=== PATIENT | female | born 2005 | race African-American/Black ===

== ENCOUNTER 2025-06-30 20:00 | Emergency (ER) | payer OTHER, SELFPAY ==
--- NOTE | ~2025-06-30 | CT_ITS ---
CLINICAL HISTORY: N V D; LLQ Tenderness CT abdomen and pelvis with contrast Comparison: None provided Findings: The lung bases are clear. There are a few small cysts in the liver. The gallbladder, pancreas, spleen, adrenal glands, and kidneys are unremarkable. There are mildly dilated fluid-filled small bowel loops in the upper and midabdomen with no evidence of obstruction. The appendix is normal. The remainder of the gastrointestinal tract is unremarkable. There is trace free fluid in the cul-de-sac. The uterus and adnexa are unremarkable. The bladder is unremarkable. There are no enlarged lymph nodes. The aorta and IVC are normal. There is no fracture or suspicious lytic or sclerotic lesion. IMPRESSION: Mildly dilated fluid-filled small bowel loops without obstruction. Consider gastroenteritis or mild ileus. This document has been electronically signed by: Lux Sparks MD on 07/01/2025 02:29:26
[2025-06-30 20:13] VITALS: BP 118/57; PULSE 77; RESP 16; TEMP 36; O2SAT 100; BMI 26.6
--- NOTE | 2025-06-30 20:14 | ED_ITS ---
HPI - General Adult General Chief complaint: Nausea/Vomiting/Diarrhea Stated complaint: vomiting, dizzy Time Seen by Provider: 07/01/25 01:32 Source: patient Mode of arrival: ambulatory Limitations: no limitations History of Present Illness ED Provider: Power ANSARI HPI narrative: The patient is a 20-year-old female who presents to the Emergency Department with nearly two weeks of intermittent nausea, with nonbloody vomiting and diarrhea, and new-onset abdominal pain. Patient reports episodes occur every couple of days; last episode around 18:00 today. Previous episode was 2 days ago, and another episode a few days prior to that. Patient reports nausea upon arrival to the ED which improved after Zofran administration. The patient reports associated nonbloody diarrhea which also occurred around 18:00 today. The patient reports her abdominal pain is sharp, localizes to both the left lower quadrant and epigastrium. Patient reports the sharp pain in her epigastrium often precedes severe nausea and triggers vomiting. The patient denies similar previous symptoms, no surgical abdominal history. The patient reports she experienced subjective fever/chills 2 weeks ago when symptoms 1st began, however denies objective fever, denies any chills/fever at present. Subjective fever with chills and warmth at illness onset; no documented temperature. Currently denies chills/fever but still has mild nausea. The patient denies dysuria, hematuria; irregular vaginal bleeding, vaginal discharge, cough, chest pain, shortness of breath, or recent sick contacts. The patient reports her last menstrual period was on June 12 as expected, with normal flow and duration. Related Data Previous Rx's ?Medication ?Instructions ?Recorded famotidine 20 mg tablet (Pepcid) 20 mg PO BID #28 tabs 07/01/25 omeprazole 20 mg capsule,delayed 20 mg PO DAILY #14 ca ps 07/01/25 release Allergies Allergy/AdvReac Type Severity Reaction Status Date / Time No Known Allergies Allergy Verified 06/30/25 20:17 Review of Systems 2 Review of Systems: Yes all other systems are reviewed and are negative PMFSH Social History Social History Smoked in Last 30 Days: No Use of substances other than those prescribed or required for medical reasons: No Advance Directives: No Advance Directives Information Provided: No Do you have a plan to hurt others: No Plan Physical Exam ED Vital Signs: Vital Signs - 24 hr 06/30/25 20:13 06/30/25 22:48 07/01/25 03:38 Temperature 96.8 F 98.5 F 98.0 F Pulse Rate 77 99 93 Respiratory Rate 16 16 12 Blood Pressure 118/57 L 114/65 98/48 L Pulse Oximetry 100 98 99 Oxygen Delivery Method Room Air Room Air Room Air BMI result Body Mass Index 26.6 CONSTITUTIONAL: The patient appears non-toxic, well nourished and in no acute distress. Vital signs as documented. HEAD: Atraumatic, normocephalic. EYES: EOMs grossly intact, pupils equal, conjunctiva clear, no exudate. ENT: Nares patent, no discharge. Airway patent, no audible stridor, visible mucosa is pink and moist without noted lesions. NECK: Trachea is midline, no obvious masses or gross abnormalities. CHEST: Symmetric movement, normal appearance. LUNGS: LS present and CTAB, no w/r/r. Non-labored work of breathing. CARDIAC: Regular Rhythm, S1/S2 appreciated, no murmurs, rubs or gallops. ABDOMEN: Abdomen soft x4 quadrants, positive tenderness to palpation of the epigastrium and left lower quadrant, negative rebound, negative guarding, no palpable masses or organomegaly. : Deferred. EXTREMITIES: Normal tone, moves all extremities spontaneously without reported pain. No obvious acute injury or deformity noted. NEURO: Alert and oriented x3, CN II-XII appear grossly intact. Cerebellar Functioning grossly intact. No obvious sensory or motor deficits. Speech clear and appropriate. PSYCH: normal affect, appropriate eye contact, fluid speech, with appropriate response to questioning. No reported suicidality or homicidality. SKIN: Warm, dry, color appropriate, normal turgor. No rashes noted. Course Course Course Narrative: This is a Rapid Medical Examination (RME) performed by Kat Jackson PA-C in triage. Full HPI, ROS, assessment and treatment plan per primary provider in the Main ED. Hx: 20 yo F hx PCOS and asthma here for eval of nausea, vomiting, and LUQ abd pain cramping in nature x1 week, worsening today. LMP 11/18. no abd surgeries. no marijuana use. consumes etoh approx 1/month PE/vitals: uncomfortable appearing Plan: labs, UA - zofran given in triage. Medications Administered Discontinued Medications Generic Name Dose Route Start Last Admin Trade Name Grecia PRN Reason Stop Dose Admin Al Hydroxide/Mg Hydroxide 30 ml 07/01/25 02:57 07/01/25 03:29 Magnesium Hydrox/Alum Hydrox 30 Ml Oral.Susp PO 07/01/25 02:58 30 ml ONCE ONE Administration Famotidine 20 mg 07/01/25 02:57 07/01/25 03:28 Famotidine 20 Mg Tablet PO 07/01/25 02:58 20 mg ONCE ONE Administration Iohexol 100 ml 07/01/25 01:58 07/01/25 01:58 Iohexol 350 Mg/Ml 100 Ml Infus..Btl IV 07/01/25 01:59 85 ml ONCE ONE Administration Lidocaine HCl 15 ml 07/01/25 02:57 07/01/25 03:29 Lidocaine Hcl Viscous 2 % 15 Ml Solution PO 07/01/25 02:58 15 ml ONCE ONE Administration Ondansetron HCl 4 mg 06/30/25 20:15 06/30/25 20:18 Ondansetron Odt 4 Mg Tab.Rapdis TRANSLINGU 06/30/25 20:16 4 mg ONCE ONE Administration Medical Decision Making Medical Decision Making MDM Narrative: 1:44 AM 07/01/2025 (Kat ANSARI): The patient is a 20-year-old female who presents to the Emergency Department with nearly two weeks of intermittent nausea, with nonbloody vomiting and diarrhea, and new-onset abdominal pain. Patient reports episodes occur every couple of days; last episode around 18:00 today. Previous episode was 2 days ago, and another episode a few days prior to that. Patient reports nausea upon arrival to the ED which improved after Zofran administration. The patient reports associated nonbloody diarrhea which also occurred around 18:00 today. The patient reports her abdominal pain is sharp, localizes to both the left lower quadrant and epigastrium. Patient reports the sharp pain in her epigastrium often precedes severe nausea and triggers vomiting. The patient denies similar previous symptoms, no surgical abdominal history. The patient reports she experienced subjective fever/chills 2 weeks ago when symptoms 1st began, however denies objective fever, denies any chills/fever at present. Subjective fever with chills and warmth at illness onset; no documented temperature. Currently denies chills/fever but still has mild nausea. The patient denies dysuria, hematuria; irregular vaginal bleeding, vaginal discharge, cough, chest pain, shortness of breath, or recent sick contacts. The patient reports her last menstrual period was on June 12 as expected, with normal flow and duration. On exam the patient has mild tenderness of the epigastrium and left lower quadrant, negative rebound, negative guarding, no other acute findings. The patient appears well, is found with fast food in her room, patient reports she ate some chicken nuggets without additional vomiting. The patient's laboratory evaluation shows leukocytosis at 17.6, no significant anemia, no electrolyte abnormality or MG. The patient's LFTs are unremarkable, lipase is normal. Patient's beta hCG is negative. The patient's urinalysis appears concentrated, with small leukocyte esterase but no nitrites. There are 11-20 WBCs with 4+ bacteria, but also greater than 20 squamous epithelial cells, urinalysis sample appears contaminated. The patient denies any dysuria or hematuria but does report urinary frequency which she states is her baseline and she attributes you high water intake. Patient will be sent for CT abdomen and pelvis, pending unremarkable CT abdomen and pelvis, in the setting of leukocytosis, nausea, vomiting, diarrhea, and abnormal urinalysis, discharging with antibiotic therapy for UTI while awaiting culture. We will also consider treating with GI cocktail and if effective discharging with Pepcid and omeprazole. 2:58 AM 07/01/2025 (Kat ANSARI): The patient's CT abdomen and pelvis shows evidence of gastroenteritis, no evidence of obstruction. The patient has had no additional vomiting, continues to appear well. Patient will be treated with a GI cocktail and we will reassess epigastric discomfort. We will discuss urinalysis results and employee shared decision-making regarding antibiotic therapy for question UTI versus contaminated sample. 4:24 AM 07/01/2025 (Kat ANSARI): The patient reports significant improvement in symptoms following GI cocktail administration. The patient's vomiting and upper abdominal symptoms are likely secondary to gastritis. The patient will be discharged with Pepcid and omeprazole. The patient's urinalysis results were discussed with the patient, at this time patient feels comfortable with plan to forgo antibiotic therapy and wait for culture results. Patient was advised to return with any new urinary symptoms or other concerns. Admission/Observation Consideration of admission/observation: Escalation of care including admission/observation considered Lab Data MDM Lab Attestation statement: I reviewed the patient's lab results. 06/30/25 20:29 06/30/25 20:29 Labs: Lab Results 06/30/25 07/01/25 Range/Units 20:29 00:04 WBC 17.6 H (4.8-10.8) X10*3/uL RBC 5.84 H (4.20-5.50) X10*6/uL Hgb 13.1 (12.0-16.0) g/dl Hct 41.0 (37.0-47.0) % MCV 70.2 L (80.0-98.0) fL MCH 22.4 L (27.0-33.0) pg MCHC 32.0 (31.0-35.0) g/dl RDW 14.1 (11.0-16.0) % Plt Count 260 (160-400) X10*3/uL MPV 10.2 (9.4-12.3) fL Immature Gran % (Auto) 0.4 (0.0-0.4) % Neut % (Auto) 78.8 H (45-73) % Lymph % (Auto) 17.3 L (20-40) % [place] % (Auto) 3.1 (2-11) % Eos % (Auto) 0.1 (0-4) % Baso % (Auto) 0.3 (0-2) % Lymph # (Auto) 3.1 (1.2-4.9) X10*3/uL [place] # (Auto) 0.6 (0.1-1.2) X10*3/uL Eos # (Auto) 0.0 (0.0-0.4) X10*3/uL Baso # (Auto) 0.1 (0.0-0.2) X10*3/uL Abs Immat Gran (auto) 0.07 H (0.00-0.03) X10*3/uL Absolute Neuts (auto) 13.9 H (2.0-8.3) x10*3/uL Absolute Nucleated RBC 0.000 (0.0-0.012) X10*3/uL Nucleated RBC % (auto) 0.0 (0.0-0.2) /100WBC Sodium 139 (135-145) mmol/L Potassium 4.0 (3.3-5.1) mmol/L Chloride 107 (96-108) mmol/L Carbon Dioxide 22 (22-29) mmol/L Anion Gap 14 (12-20) BUN 10 (9-16) mg/dL Creatinine 0.76 (0.5-1.4) mg/dL Estim Creat Clear Calc 111.7 Estimated GFR > 60 Random Glucose 137 H (60-115) mg/dL Calcium 9.8 (8.4-10.2) mg/dL Magnesium 1.7 (1.6-2.6) mg/dL Total Bilirubin 0.4 (0.0-1.0) mg/dL AST 28 (5-31) U/L ALT 22 (0-31) U/L Alkaline Phosphatase 111 (39-117) U/L Total Protein 8.2 H (6.5-8.0) g/dL Albumin 5.0 (3.5-5.0) g/dL Lipase 72 (8-78) U/L Beta HCG, Quant < 2 mIU/mL Urine Color Yellow Urine Appearance Clear Urine pH 6.5 (5.0-9.0) Ur Specific [place] >= 1.030 H (1.005-1.025) Urine Protein Trace (Neg-Trace) mg/dL Urine Glucose (UA) Negative (Negative) mg/dL Urine Ketones >=160 (Negative) mg/dL Urine Blood Negative (Negative) Urine Nitrite Negative (Negative) Ur Leukocyte Esterase Small (1+) H (Negative) Urine RBC 0-2 (0-2) /HPF Urine WBC 11-20 H (0-5) /HPF Ur Squamous Epith Cells >20 (0-2) /HPF Urine Bacteria 4+ (None Seen) Hyaline Casts 0-2 (0-2) /LPF Radiology Impression Discussion of test interpretation with radiology: I have reviewed the radiologist's reading. Radiologist Impression: Reason for Exam: N/V/D; LLQ Tenderness CLINICAL HISTORY: N V D; LLQ Tenderness CT abdomen and pelvis with contrast Comparison: None provided Findings: The lung bases are clear. There are a few small cysts in the liver. The gallbladder, pancreas, spleen, adrenal glands, and kidneys are unremarkable. There are mildly dilated fluid-filled small bowel loops in the upper and midabdomen with no evidence of obstruction. The appendix is normal. The remainder of the gastrointestinal tract is unremarkable. There is trace free fluid in the cul-de-sac. The uterus and adnexa are unremarkable. The bladder is unremarkable. There are no enlarged lymph nodes. The aorta and IVC are normal. There is no fracture or suspicious lytic or sclerotic lesion. IMPRESSION: Mildly dilated fluid-filled small bowel loops without obstruction. Consider gastroenteritis or mild ileus. This document has been electronically signed by: Lux Sparks MD on 07/01/2025 02:29:26 Discharge Plan Discharge Clinical Impression: Gastroenteritis Gastritis Qualifiers: Gastritis type: unspecified gastritis Chronicity: acute Gastritis bleeding: w ithout bleeding Qualified Code(s): K29.00 - Acute gastritis without bleeding Patient Disposition: Home, Self-Care Instructions: Gastritis (ED), Gastroenteritis (ED), Acute Nausea and Vomiting (ED) Additional Instructions: Thank you for choosing [facility]'s Emergency Department for your care today. Thankfully your CT abdomen today shows no evidence of an acute surgical process causing your symptoms. Your laboratory evaluation is also reassuring. At this time there is no indication for admission to the hospital or continued ED observation, and it is safe to discharge you home. Your symptoms appear consistent with a viral inflammation of your gastrointestinal system, a condition known as gastroenteritis. However given your improvement in symptoms following administration of a GI cocktail here in the emergency department, there may also be a component of gastritis causing your discomfort. Please take Prilosec daily and Pepcid twice daily for the next 2 weeks to treat this inflammation of your stomach. Your urinalysis today was initially concerning for possible infection but given your lack of urinary symptoms this is more likely a contaminated sample. After discussion of your available care plans, you have opted to forego antibiotic therapy while awaiting the culture results. You will receive a phone call to provide you antibiotics if your urine culture is positive for infection. You should take alternating (staggered) doses of ibuprofen 600mg and Tylenol 1000mg every 4 hours as needed for any additional pain. Please stay well hydrated and get plenty of rest. Please follow up with your primary care physician for re-evaluation, additional management of your symptoms, and continued preventative care. If you do not have a primary care physician, please call the [facility] at [phone] to establish a new primary care physician. While waiting to establish your new primary care physician, you can call our [facility] at [phone] for non-emergency needs. Please return to the emergency department if you develop a severe or sudden change in your symptoms, a fever over 100.4 that does not improve with Tylenol or Ibuprofen, recurrent vomiting, or any other new or worsening symptoms or concerns. Prescriptions: New famotidine [Pepcid] 20 mg tablet 20 mg PO BID Qty: 28 0RF omeprazole 20 mg capsule,delayed release(DR/EC) 20 mg PO DAILY Qty: 14 0RF Print Language: Turkish
[2025-06-30 20:34] LABS: MANUAL DIFF FLAG NO
[2025-06-30 20:35] LABS: Hematocrit 41.0 % (37.0-47.0); Hemoglobin 13.1 g/dl (12.0-16.0); Imm Gran Abs Auto 0.07 X10*3/uL (0.00-0.03); Imm Gran Pct Auto 0.4 % (0.0-0.4); Lymphocytes Absolute Auto 3.1 X10*3/uL (1.2-4.9); Mean Corpuscular HGB Conc 32.0 g/dl (31.0-35.0); Mean Corpuscular Hemoglobin 22.4 pg (27.0-33.0); Mean Corpuscular Volume 70.2 fL (80.0-98.0); NRBC Abs Auto 0.000 X10*3/uL (0.0-0.012); NRBC Pct Auto 0.0 /100WBC (0.0-0.2); Platelet Count 260 X10*3/uL (160-400); Red Blood Count 5.84 X10*6/uL (4.20-5.50); White Blood Count 17.6 X10*3/uL (4.8-10.8)
[2025-06-30 20:55] LABS: Alanine Aminotransferase 22 U/L (0-31); Albumin Level 5.0 g/dL (3.5-5.0); Alkaline Phosphatase 111 U/L (39-117); Anion Gap 14 (12-20); Aspartate Amino Transferase 28 U/L (5-31); Blood Urea Nitrogen 10 mg/dL (9-16); Calcium 9.8 mg/dL (8.4-10.2); Carbon Dioxide 22 mmol/L (22-29); Chloride 107 mmol/L (96-108); Creatinine Clr Calc Pharmacy 111.7; Estimated Glomerular Filt Rate > 60; Lipase 72 U/L (8-78); Magnesium 1.7 mg/dL (1.6-2.6); Potassium 4.0 mmol/L (3.3-5.1); Sodium 139 mmol/L (135-145); Total Protein 8.2 g/dL (6.5-8.0)
[2025-06-30 22:48] VITALS: BP 114/65; PULSE 99; RESP 16; TEMP 36.9; O2SAT 98
--- OUTSIDE RECORDS SUMMARY | 2025-06-30 22:55 | XMS_ITS | Clinical Summary ---
Author Organization [facility] lin Address [address] [place] [address] Care Team Providers Care Deputy Editor In Chief Name Role Phone Pcp, No Primary Care Provider [phone] Immunizations Immunization Administration Dates Next Due PPD Test 08/09/2024,06/05/2023 Social History Tobacco Use Types Packs/Day Years Used Date Smoking Tobacco: Never Assessed Comments Unknown Sex and Gender Information Value Date Recorded Sex Assigned at Not on file Legal Sex Female 4:07 PM EST Gender Identity Not on file Sexual Orientation Not on file Plan of Treatment Health Maintenance Due Date Last Done Comments Depression: Screening Annual ly using PHQ-2/9 in Adults 18 yrs or above (or HM Modifier)([facility]) 2021 Hepatitis C Virus Infection in Adolescents and Adults: Screening (or Modifier) ([facility]) 2021 SDOH Screening Reminder: Claribel hayward for all adults ([facility]) 2021 Tobacco Smoking Cessation: i n Adults excluding Women: Behavioral and Pharmacotherapy Interventions ([facility]) 2021 DTaP/Tdap/Td Vaccines ([facility]) (1 - Tdap) 2022 Cervical Cancer Screenin 1-65 yrs of age (or Modifier) 2024 Cervical Cancer Screening: P ap every 3 yrs pts age 21-65 2024 Cervical Cancer: Pap Screeni ng with Modifier timing ([facility]) 2024 Cervical Cancer: hrHPV alone or with cotesting Pap for Pts 30-65yrs screening every 5yrs ([facility]) 2024 Flu Vaccination: Yearly for ages 18mos through 64 years (or Modifier)([facility]) 02/23/2025 COVID-19 Vaccine Screening: Initial Series and Booster Status ([facility]) (2024- season) 2025 Zoster/Shingles Vaccine Seri es Screening: Adults aged 18+ yrs (or HM Modifiers)([facility] ) (1 of 2) 2053 Pneumococcal Vaccination Scr eening: Pts 0-19 & 19-49 yrs of age ([facility] ) Aged Out No longer eligible based on patient's age to complete this topic Medical Devices Not on file Insurance Care Teams Deputy Editor In Chief Relationship Specialty Start Date End Date Pcp, No PCP - General Family Medicine 08/09/24
[2025-07-01 00:11] LABS: Appearance Urine Clear; Glucose Urine UA Negative (Negative); PH 6.5 (5.0-9.0); Specific Gravity - Urine >= 1.030 (1.005-1.025); UMIC TRIGGER UACC YES
[2025-07-01 00:15] LABS: UACC Culture Trigger YES
[2025-07-01] MEDS: iohexoL 350 MG/ML 100 ML INFUS..BTL IV (01:58)
[2025-07-01] MEDS: Magnesium Hydrox/Alum Hydrox 30 ML ORAL.SUSP PO (03:29)
[2025-07-01] MEDS: Lidocaine HCl Viscous 2 % 15 ML SOLUTION PO (03:29)
[2025-07-01 03:38] VITALS: BP 98/48; PULSE 93; RESP 12; TEMP 36.7; O2SAT 99
[2025-07-01 04:43] VITALS: BP 96/52; PULSE 87; RESP 16; TEMP 36.7; O2SAT 99
== END 2025-07-01 04:51 | disposition home or self-care (01) ==
PROVIDERS: Physician Assistant Medical; Emergency Provider Emergency Medicine
DX: K29.00 Acute gastritis without bleeding (principal); R11.2 Nausea with vomiting, unspecified; R10.814 Left lower quadrant abdominal tenderness
CPT/HCPCS: 36415; 74177; 80053; 81001; 83690; 83735; 84702; 85025; 87086; 87147; 99284; 99285; Q9967

== ENCOUNTER → 2025-07-01 01:42 | Outpatient (BNV) | payer OTHER, SELFPAY | PROVIDERS: Emergency Provider Emergency Medicine; Visit Provider Radiology Diagnostic Radiology | DX: K63.89 Other specified diseases of intestine (principal) | CPT/HCPCS: 74177 ==